=== PATIENT | female | born 1980 | race Caucasian/White ===

== ENCOUNTER → 2017-05-20 | Outpatient (CLI) | payer OTHER ==
[~2017-05-20] MED LIST: CYCL1TAB29 PO; HYDR-3366 PO; IBUP400T20 PO; TURM500C3; VITA100021 SL
== END ==
LOC: CPRE 11:50
PROVIDERS: ATTEND Neurological Surgery
DX: M54.41 Lumbago with sciatica, right side (principal); M51.16 Intervertebral disc disorders with radiculopathy, lumbar region

== ENCOUNTER → 2017-05-22 | Day surgery (SDC) | payer OTHER ==
--- NOTE | 2017-05-21 17:53 | MH ---
cc: GÓMEZ CONLEY MD, ROHIT K. M.D. WIERZBICKI, TIMOTHY J. M.D. DATE OF ADMISSION 05/22/2017 ADMISSION DIAGNOSIS Herniated nucleus pulposus lumbar spine. HISTORY OF PRESENT ILLNESS This is a 36-year-old female who we initially saw on 12/10/2016 when she presented for evaluation of low back pain that she has had for 2 years. Initially she thought it was muscle spasms that she gets periodically. She states normally she will lay down for a couple of days and the pain would resolve. She states during her more recent episode she had right hip pain. She states that when her pain started at the time she was in [facility] and came back to the [place] and had a workup with MRI of the right hip which revealed a torn labrum in her right hip. Orthopedics recommended surgery. She says she had right hip surgery in 2016. She states that after surgery her back pain was exacerbated. It has progressively gotten worse. She complains of currently constant burning type pain from her tail bone up the right side of her back. She states that she has tried numerous therapies for this including massage, cupping, acupuncture which have helped with her severe pain that she had when she presented initially in November. She states that she is very frustrated currently with her restrictions and she cannot sit long or partake in any activities that she enjoys. She states that she had an episode 3 months ago where she could not walk to the bathroom secondary to the pain. She states that she does exercise on her own including light yoga. The patient is wanting to proceed with surgical intervention because she cannot do her normal activity without exacerbating her pain and she is frustrated with her activity restrictions. PAST MEDICAL HISTORY She denies any significant medical conditions. She states that she is not taking any current medications. MEDICATIONS The patient reports no current medications. ALLERGIES ERYTHROMYCIN AND SOMA. SOCIAL HISTORY She does not smoke. She drinks 0-2 alcohol beverages a day. Denies any substance abuse. PAST SURGICAL HISTORY 1. The patient has had hip surgery, right hip surgery in 2015. 2. ACL, MCL and PCL repairs in 2004. 3. Meniscus repair in 2005. 4. Bone removal from her foot in 2000. FAMILY HISTORY Noncontributory. REVIEW OF SYSTEMS CONSTITUTIONAL: She denies any fever or chills. EARS, NOSE, AND THROAT: No pharyngitis or exudate or bloody drainage from her nose. CARDIOVASCULAR: She denies any chest pain, palpitations. RESPIRATORY: No cough or shortness of breath. GASTROINTESTINAL: No nausea or vomiting, abdominal pain. GENITOURINARY: No dysuria or hematuria. MUSCULOSKELETAL: Positive for back pain. SKIN: No rashes or pruritus. ENDOCRINE: No polyuria or polydipsia. HEMATOLOGIC: No bruising or bleeding tendencies. PHYSICAL EXAMINATION HEAD: Normocephalic, atraumatic. NECK: Supple. No carotid bruits heard on auscultation. LUNGS: Clear to auscultation bilaterally. HEART: Regular rate and rhythm. Normal S1-S2. ABDOMEN: Soft and nontender. Positive bowel sounds. SKIN: Reveals no cyanosis or erythema. MUSCULOSKELETAL: She moves all four extremities with 5/5 strength in the lower extremities. NEUROLOGICAL: Awake and alert, oriented. Cranial nerves II through XII appear grossly intact. Speech is fluent. Comprehension is good. Sensation reveals numbness in the right knee where she has had previous knee surgery, otherwise intact in the lower extremities. Reflexes 2+ in the lower extremities. IMAGING Data reviewed, I reviewed the MRI of the lumbar spine from August 20, 2016 which revealed an L4-L5 disc herniation eccentric to the right side along with disc degeneration. There is also disc degeneration at the L3-L4 and L5-S1 levels. She is requesting that we proceed surgery. IMPRESSION A 36-year-old female with a chronic history of low back pain with associated pain radiating into the buttocks and hips in the anterior aspect and posterior lateral thigh. She has undergone physical therapy as well as acupuncture and her symptoms persist and are intolerable and she has requested surgical intervention. PLAN We have discussed with the patient a right L4-L5 microdiskectomy as well as the risks, benefits, alternatives and recovery time. We have also discussed conservative treatment measures as well as the risks and benefits of those. We have discussed the risks involved surgery include but not limited to bleeding, infection, muscle weakness, voice hoarseness, difficulty swallowing, heart attack, stroke blood clots, scar tissue formation among others. She understands this would not completely alleviate her pain since she has multilevel degenerative disk disease as well as the chronicity of her current symptoms. The patient is requesting we proceed with surgical intervention understanding the procedure as well as the risks involved and she was therefore scheduled accordingly. MD RANDY العلي /4:58 PM /5:13 PM
[~2017-05-22] VITALS: Ht 180.3 cm; Wt 70.8 kg
[~2017-05-22] MED LIST changes: +*MEPERIDINE 25 MG INJ VIAL PERIprocedural Use ONLY ONE; +*ONDANSETRON 4 MG VIAL PERIprocedural Use ONLY ONE; +*morphine SULFATE 8 MG/ML PERIprocedure ONLY ONE; +ACETAMINOPHEN 1000 MG/100 ML 100 ML IV ONE; +ACETAMINOPHEN/HYDROcodone 325 MG/10 MG TAB ONE; +ACETAMINOPHEN/HYDROcodone 325 MG/10 MG TAB PO ONE; +APREPITANT 40 MG CAP ONE; +BUPIVACAINE/EPINEPHRINE 0.5% 50 ML VIAL ONE; +CHLORHEXIDINE GLUCONATE 2 % 1 PACK (2 CLOTHS) TOPICAL PRN; +DEXAMETHASONE SOD PHOS 4 MG/ML VIAL ONE; +DO NOT ADM ANY ANTICOAGULANT DRUGS PRN; +FAMOTIDINE 20 MG/2 ML VIAL ONE; +GELFOAM SIZE 100 ONE; +INSULIN HUMAN REGULAR 1,000 UNITS/10 ML VIAL SQ PRN; +KETAMINE HCL 500 MG/5 ML VIAL ONE; +LACTATED RINGER'S 1000 ML IV PRN; +METOPROLOL TARTRATE 25 MG TAB PO PRN; +MIDAZOLAM HCL 2 MG/2 ML VIAL ONE; +NEOSTIGMINE 3 MG/3 ML SYR IV ONE; +ONDANSETRON HCL 4 MG/2 ML VIAL IV PUSH ONE; +ONDANSETRON HCL 4 MG/2 ML VIAL ONE; +POVIDONE IODINE 5% (ANTISEPSIS KIT) 4 APPLICATIONS EACH NARE PRN; +PROMETHAZINE INJ 25 MG/ML VIAL ONE; +PROPOFOL 200 MG/20 ML AMP IV ONE; +SODIUM CHLOR 0.9% 1000 ML INJ 1,000 ML IV SCH; +SODIUM CHLORID 0.9% 500 ML IV PRN; +THROMBIN (TOPICAL) 5,000 UNIT VIAL ONE; +VANCOMYCIN 1,000 MG/NS 250 ML IV SCH; +VANCOMYCIN HCL 1000 MG VIAL ONE; +methylPREDNISolone ACETATE 40 MG/ML VIAL ONE
--- NOTE | 2017-05-22 10:40 | PD.OP ---
Pinky Whittington MD Operative Report Date of Surgery: May 22, 2017 Preoperative Diagnosis: Large L4-5 disc herniation and associated spinal stenosis; low back pain with radiculopathy Postoperative Diagnosis: Same Procedure: Right L4-5 hemilaminotomy with microdiscectomy; microsurgical technique Anesthesia: Gen. endotracheal by Jose Ayers Surgeon: Chris Hurd M.D. [employer]ambling Floor Supervisor(s): Zulema Liu Operation and Findings: Following administration of general endotracheal anesthesia, patient received vancomycin 1 g intravenously. Sequential compression devices were placed for DVT prophylaxis. She was then turned in prone position on Ben frame and the Eliseo table and all pressure points adequately padded. The lumbar region was then shaved and prepped with a Betadine and ChloraPrep. Sterile draping undertaken with Ioban. Midline incision overlying the L4-5 level was then made after infiltrating the skin with 0.5% Marcaine with epinephrine solution. The skin incision was made extending down through the fascia and then using the subperiosteal plane on the right side the muscular attachments to the spinous process and lamina were detached. Intraoperative fluoroscopy was used for level confirmation and further dissection undertaken using microtechnique with microscope magnification. The inferior portion of the L4 and superior portion of the L5 lamina were then drilled out and the underlying ligamentum flavum also removed. There was some facet arthropathy noted in the medial portion of facet was also resected and the lateral recess decompressed. Epidural venous stasis which he with the bipolar cautery along with Gelfoam and thrombin and bone wax used at the laminotomy edges for hemostasis. The thecal sac was then gently retracted with a nerve root retractor and a large extruded disc fragment was identified. Fragments were removed with pituitary forceps and the nerve root impingement along with thecal sac compression decompressed. The area was then copiously irrigated with vancomycin solution. Depo-Medrol 40 mg also injected in the epidural space. The retractors removed and the muscle fascia proximal using 2-0 Vicryl interrupted stitches. 3-0 Vicryl subcuticular stitches were also placed in an interrupted fashion and planned skin closure was with Mastisol and Steri-Strips. A sterile dressing was then applied and the patient then turned in the supine position and extubated and taken to recovery room in stable condition. There were no intraoperative complications and all sponge and needle count was correct at the end of the procedure. Estimated blood loss about 10ml. Chris Hurd MD May 22, 2017 10:40
--- NOTE | 2017-05-22 11:34 | RADRPT ---
EXAM DATE/TIME: 05/22/2017 09:08 [facility] COMPARISON: No previous studies available for comparison. INDICATIONS : L4-L5 star-laminectomy. Level localization. MEDICAL HISTORY : None. SURGICAL HISTORY : None. ENCOUNTER: Initial ACUITY: 1 day PAIN SCORE: Non-responsive. LOCATION: Lumbar spine. FINDINGS: Intraoperative examination demonstrates a localizing probe pointing towards L4. CONCLUSION: Intraoperative changes as above. Lisset Marshall MD on May 22, 2017 at 11:24 Board Certified Radiologist. This report was verified electronically.
[2017-05-22 11:49] VITALS: BP 106/59; PULSE 58; RESP 18; TEMP 97.9; O2SAT 98
== END | disposition home or self-care (01) ==
LOC: HSDC 06:08
PROVIDERS: ATTEND Neurological Surgery
DX: M51.16 Intervertebral disc disorders with radiculopathy, lumbar region (principal); M48.06 Spinal stenosis, lumbar region
CPT/HCPCS: 00630; 63030; 72020; 76000; J0131; J1030; J1100; J2175; J2250; J2270; J2405; J2550; J2710; J3010; J3370; J7050; J7120; J8501